=== PATIENT | female | born 1985 | race Caucasian/White ===

== ENCOUNTER 2020-07-23 03:39 | Emergency (ER) | payer OTHER ==
[~2020-07-23] VITALS: Wt 72.6 kg
[~2020-07-23 03:39] MED LIST: ABILIFY5 MG PO; HYDROCODONE BIT1 T11 PO; LEXAPRO20 MG PO; TRAZODONE50 MG PO
== END 2020-07-23 04:48 | disposition left against medical advice (07) ==
LOC: ED 03:39
DX: S69.92XA Unspecified injury of left wrist, hand and finger(s), initial encounter (principal); Z53.21 Procedure and treatment not carried out due to patient leaving prior to being seen by health care provider; V89.2XXA Person injured in unspecified motor-vehicle accident, traffic, initial encounter; Y93.89 Activity, other specified; Y92.89 Other specified places as the place of occurrence of the external cause; Y99.8 Other external cause status